=== PATIENT | female | born 1995 | race Caucasian/White ===

== ENCOUNTER 2017-01-09 21:05 | Emergency (ER) | payer OTHER ==
--- NOTE | 2017-01-09 23:53 | ED CLINICAL REPORT ---
Clinical Report - Physicians/Mid Levels [facility] [address] [place] [address] 01/09/2017 21:08 Patient: RENETTA PRINGLE Time Seen: 22:06 Jan 09 2017. Arrived- By private vehicle. Historian- patient. HISTORY OF PRESENT ILLNESS Chief Complaint: PELVIC PAIN and VAGINAL BLEEDING. 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 The symptoms are described as mild. The patient has had pelvic pain and lower back pain. No pain with urination or urinary frequency. (, status post a D&C on 12/01/16 now with pelvic pain and cramping as well as low back pain, and continuing spotting, vaginal bleeding sincelast month, with worsening of spotting over the last 2 days. Denies any lightheadedness, syncope. Denies any palpitations.). REVIEW OF SYSTEMS No nausea or vomiting. All systems otherwise negative, except as recorded above. PAST HISTORY Problems: Heart Disease. Pyelonephritis. Asthma. Additional Surgeries: Dilatation & Curettage. Foot. Medications: Albuterol Sulfate Inhalation (currently out of MDI). Allergies: Sulfa Antibiotics. SOCIAL HISTORY Smoker- current status unknown. No alcohol use or drug use. ADDITIONAL NOTES The nursing notes have been reviewed. PHYSICAL EXAM Vital Signs: 01/09/2017 21:13 BP: 137/81. HR: 119. RR: 15. O2 saturation: 100%. Temp: 98 F. Pain level now: 8/10. Appearance: Alert. HEENT: Normal external inspection. Neck: Neck supple. CVS: Heart sounds normal. Rate normal. Rhythm normal. Respiratory: No respiratory distress. Abdomen: Soft. No mass. No abdominal tenderness. Back: Normal external inspection. No CVA tenderness. : Speculum and bimanual exam performed. Moderate vaginal bleeding, consisting of dark blood with clots, via the cervical os. Tissue present in the vagina (clots). Cervical os closed. No cervical dilation. Mild right adnexal tenderness; uterine tenderness. Uterine tenderness. No tenderness with movement of the cervix. No adnexal tenderness. No adnexal mass/fullness. (large clots, mid pelvic tenderness, no cmt tendernss, chaparoned with RN). Skin: Skin warm. Neuro: Oriented X 3. LABS, X-RAYS, AND EKG Pelvic Sonogram: IMPRESSION: 1. Negative pelvic ultrasound. Electronically Final signed by:Santhosh Vázquez MD 01/10/2017 6:27:06 AM. Laboratory Tests: UA-Culture if indicated: (ELISA: 01/09/2017 22:10) ( [facility] 01/09/2017 22:46) Final results Test Result Flag Units (Reference) URINE COLOR YELLOW URINE APPEARANCE CLEAR URINE GLUCOSE NEGATIVE (NEGATIVE) URINE BILIRUBIN 1+ (NEGATIVE) URINE KETONE TRACE (NEGATIVE) URINE SPECIFIC GRAVITY >= 1.030 (1.010-1.030) URINE PH 6.0 (5.0-8.0) URINE PROTEIN 1+ (NEGATIVE) URINE UROBILINOGEN 0.2 EU/dL (0.2-1.0) URINE NITRITE NEGATIVE (NEGATIVE) URINE BLOOD 3+ (NEGATIVE) URINE LEUK ESTERASE NEGATIVE (NEGATIVE) URINE RBC 75-100 rbc/hpf (0-1) URINE WBC 3-5 wbc/hpf (0-1) URINE EPITHELIAL CELLS 1-3 EPI/hpf (0-5) URINE BACTERIA MODERATE (2+ TO 3+) (NONE SEEN) URINE COMMENT CULTURE INDICATED FEW TRICHOMONASURINE CULTURES ARE SET-UP BASED ON THE FOLLOWING CRITERIA:POSITIVE NITRITEPOSITIVE LEUKOCYTE ESTERASEGREATER THAN 10 WHITE BLOOD CELLSMODERATE (2+) OR GREATER BACTERIA Serum Qualitative: (ELISA: 01/09/2017 22:15) ( [facility] 01/09/2017 22:49) Final results Test Result Flag Units (Reference) , SERUM POSITIVE VERY WEAK POSITIVE CBC w Diff: (ELISA: 01/09/2017 22:15) ( [facility] 01/09/2017 22:33) Final results Test Result Flag Units (Reference) WHITE BLOOD COUNT 9.6 K/uL (4.5-11.5) RED BLOOD COUNT 4.79 M/uL (4.00-5.20) HEMOGLOBIN 13.4 gm/dL (12.0-16.0) HEMATOCRIT 40.4 % (36.0-46.0) MEAN CELL VOLUME 84 fL (80-100) MEAN CORPUSCULAR HGB 28 pg (26-34) MEAN CORPUSCULAR HGB CONC 33 g/dL (31-37) RED CELL DISTRIBUTION WIDTH 14.6 % (11.6-14.8) PLATELET COUNT 362 K/uL (150-400) NEUTROPHIL % 74.9 % (50-75) LYMPH % 18.7 L % (25-40) MONO % 5.2 % (3-14) EOSINOPHIL % 0.9 % (0-4) BASOPHIL % 0.3 % (0-2) CMP: (ELISA: 01/09/2017 22:15) ( MsgRcvd 01/09/2017 23:37) Final results Test Result Flag Units (Reference) GLUCOSE 86 mg/dL (70-110) BUN 13 mg/dL (7-18) CREATININE 0.7 mg/dL (0.6-1.3) Estimated GFR >60 mL/min Estimated GFR- >60 mL/min Note: Persistent reduction over 3 months in eGFR<60 mL/min/1.73 m2 defines CKD. Patients with eGFR values>=60 mL/min/1.73 m2 may also have CKD if evidence ofpersistent proteinuria. Additional information may be foundat www.kidney.org. SODIUM 140 mmol/L (136-145) POTASSIUM 3.8 mmol/L (3.5-5.1) CHLORIDE 103 mmol/L (98-107) CARBON DIOXIDE 28 mmol/L (21-32) CALCIUM 9.3 mg/dL (8.5-10.1) TOTAL PROTEIN 8.4 H g/dL (6.4-8.2) ALBUMIN 4.1 g/dL (3.3-5.0) BILIRUBIN, TOTAL 0.4 mg/dL (0.0-1.0) ALKALINE PHOSPHATASE 70 U/L (46-116) AST (SGOT) 11 L U/L (15-37) ALT (SGPT) 18 U/L (12-78) Serum Quantitative: (ELISA: 01/09/2017 22:15) ( MsgRcvd 01/09/2017 23:13) Final results Test Result Flag Units (Reference) BETA HCG, QUANTITATIVE 3 mIU/mL REFERENCE RANGE:Adult Males: <2 mIU/mLNon- Females: <6 mIU/mL Females:Approximate Approximate hCGGestational Age Range (mIU/mL) 0-1 week 0-501-2 weeks 40-3002-3 weeks 100-57965-6 weeks 500-02870-3 months 5,000-200,0002-3 months 10,000-100,0002nd trimester 3,000-50,0003rd trimester 1,000-50,000 . PROGRESS AND PROCEDURES Course of Care: Patient with vaginal bleeding over the last 1 month, status post D&C. Patient with abdominal cramping off and on. Has not seen by INVESTMENT FUND MANAGER. Vaginal clots present today. Patient with hCG that is 3, likely declining from previous. Patient will need to follow-up with INVESTMENT FUND MANAGER. Patient with no CVA tenderness. Nonseptic appearing. Stable for disposition outpatient. 01/09/2017 23:58 BP: 115/87. HR: 59. RR: 15. O2 saturation: 98%. [place] pain scale: 2/10. Patient is stable. Physical exam findings are improved. Symptoms better. Patient/family counseled. Disposition: Discharged. Condition: good. CLINICAL IMPRESSION Vaginal bleeding. Acute pelvic pain. Acute urinary tract infection with cystitis. INSTRUCTIONS Drink plenty of fluids. Warnings: Further evaluation is necessary. GENERAL WARNINGS: Return or contact your physician immediately if your condition worsens or changes unexpectedly, if not improving as expected, or if other problems arise. Prescription Medications: Hydrocodone/APAP 5mg / 325mg: take 1 orally every 6 hours as needed for pain. Dispense twelve (12). No refill. Macrobid 100 mg: Take 1 capsule orally every 12 hours for 7 days. No refills. Substitution is permissible. Follow-up: Follow up with a specialist. Understanding of the discharge instructions verbalized by patient. Follow-up with: Jc Dempsey MD, Obstetrics/Gynecology, , [facility], [address] [place] [address] (Electronically signed by Yue Champion P.A.-C 01/10/2017 14:56)
--- NOTE | 2017-01-09 23:53 | ED CLINICAL REPORT ---
Clinical Report - Physicians/Mid Levels [facility] [address] [place] [place] [address] 01/09/2017 21:08 Patient: RENETTA PRINGLE Time Seen: 22:06 Jan 09 2017. Arrived- By private vehicle. Historian- patient. HISTORY OF PRESENT ILLNESS Chief Complaint: PELVIC PAIN and VAGINAL BLEEDING. 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 The symptoms are described as mild. The patient has had pelvic pain and lower back pain. No pain with urination or urinary frequency. (, status post a D&C on 12/01/16 now with pelvic pain and cramping as well as low back pain, and continuing spotting, vaginal bleeding sincelast month, with worsening of spotting over the last 2 days. Denies any lightheadedness, syncope. Denies any palpitations.). REVIEW OF SYSTEMS No nausea or vomiting. All systems otherwise negative, except as recorded above. PAST HISTORY Problems: Heart Disease. Pyelonephritis. Asthma. Additional Surgeries: Dilatation & Curettage. Foot. Medications: Albuterol Sulfate Inhalation (currently out of MDI). Allergies: Sulfa Antibiotics. SOCIAL HISTORY Smoker- current status unknown. No alcohol use or drug use. ADDITIONAL NOTES The nursing notes have been reviewed. PHYSICAL EXAM Vital Signs: 01/09/2017 21:13 BP: 137/81. HR: 119. RR: 15. O2 saturation: 100%. Temp: 98 F. Pain level now: 8/10. Appearance: Alert. HEENT: Normal external inspection. Neck: Neck supple. CVS: Heart sounds normal. Rate normal. Rhythm normal. Respiratory: No respiratory distress. Abdomen: Soft. No mass. No abdominal tenderness. Back: Normal external inspection. No CVA tenderness. : Speculum and bimanual exam performed. Moderate vaginal bleeding, consisting of dark blood with clots, via the cervical os. Tissue present in the vagina (clots). Cervical os closed. No cervical dilation. Mild right adnexal tenderness; uterine tenderness. Uterine tenderness. No tenderness with movement of the cervix. No adnexal tenderness. No adnexal mass/fullness. (large clots, mid pelvic tenderness, no cmt tendernss, chaparoned with RN). Skin: Skin warm. Neuro: Oriented X 3. LABS, X-RAYS, AND EKG Pelvic Sonogram: IMPRESSION: 1. Negative pelvic ultrasound. Electronically Final signed by:Santhosh Vázquez MD 01/10/2017 6:27:06 AM. Laboratory Tests: UA-Culture if indicated: (ELISA: 01/09/2017 22:10) ( [facility] 01/09/2017 22:46) Final results Test Result Flag Units (Reference) URINE COLOR YELLOW URINE APPEARANCE CLEAR URINE GLUCOSE NEGATIVE (NEGATIVE) URINE BILIRUBIN 1+ (NEGATIVE) URINE KETONE TRACE (NEGATIVE) URINE SPECIFIC GRAVITY >= 1.030 (1.010-1.030) URINE PH 6.0 (5.0-8.0) URINE PROTEIN 1+ (NEGATIVE) URINE UROBILINOGEN 0.2 EU/dL (0.2-1.0) URINE NITRITE NEGATIVE (NEGATIVE) URINE BLOOD 3+ (NEGATIVE) URINE LEUK ESTERASE NEGATIVE (NEGATIVE) URINE RBC 75-100 rbc/hpf (0-1) URINE WBC 3-5 wbc/hpf (0-1) URINE EPITHELIAL CELLS 1-3 EPI/hpf (0-5) URINE BACTERIA MODERATE (2+ TO 3+) (NONE SEEN) URINE COMMENT CULTURE INDICATED FEW TRICHOMONASURINE CULTURES ARE SET-UP BASED ON THE FOLLOWING CRITERIA:POSITIVE NITRITEPOSITIVE LEUKOCYTE ESTERASEGREATER THAN 10 WHITE BLOOD CELLSMODERATE (2+) OR GREATER BACTERIA Serum Qualitative: (ELISA: 01/09/2017 22:15) ( [facility] 01/09/2017 22:49) Final results Test Result Flag Units (Reference) , SERUM POSITIVE VERY WEAK POSITIVE CBC w Diff: (ELISA: 01/09/2017 22:15) ( [facility] 01/09/2017 22:33) Final results Test Result Flag Units (Reference) WHITE BLOOD COUNT 9.6 K/uL (4.5-11.5) RED BLOOD COUNT 4.79 M/uL (4.00-5.20) HEMOGLOBIN 13.4 gm/dL (12.0-16.0) HEMATOCRIT 40.4 % (36.0-46.0) MEAN CELL VOLUME 84 fL (80-100) MEAN CORPUSCULAR HGB 28 pg (26-34) MEAN CORPUSCULAR HGB CONC 33 g/dL (31-37) RED CELL DISTRIBUTION WIDTH 14.6 % (11.6-14.8) PLATELET COUNT 362 K/uL (150-400) NEUTROPHIL % 74.9 % (50-75) LYMPH % 18.7 L % (25-40) MONO % 5.2 % (3-14) EOSINOPHIL % 0.9 % (0-4) BASOPHIL % 0.3 % (0-2) CMP: (ELISA: 01/09/2017 22:15) ( MsgRcvd 01/09/2017 23:37) Final results Test Result Flag Units (Reference) GLUCOSE 86 mg/dL (70-110) BUN 13 mg/dL (7-18) CREATININE 0.7 mg/dL (0.6-1.3) Estimated GFR >60 mL/min Estimated GFR- >60 mL/min Note: Persistent reduction over 3 months in eGFR<60 mL/min/1.73 m2 defines CKD. Patients with eGFR values>=60 mL/min/1.73 m2 may also have CKD if evidence ofpersistent proteinuria. Additional information may be foundat www.kidney.org. SODIUM 140 mmol/L (136-145) POTASSIUM 3.8 mmol/L (3.5-5.1) CHLORIDE 103 mmol/L (98-107) CARBON DIOXIDE 28 mmol/L (21-32) CALCIUM 9.3 mg/dL (8.5-10.1) TOTAL PROTEIN 8.4 H g/dL (6.4-8.2) ALBUMIN 4.1 g/dL (3.3-5.0) BILIRUBIN, TOTAL 0.4 mg/dL (0.0-1.0) ALKALINE PHOSPHATASE 70 U/L (46-116) AST (SGOT) 11 L U/L (15-37) ALT (SGPT) 18 U/L (12-78) Serum Quantitative: (ELISA: 01/09/2017 22:15) ( MsgRcvd 01/09/2017 23:13) Final results Test Result Flag Units (Reference) BETA HCG, QUANTITATIVE 3 mIU/mL REFERENCE RANGE:Adult Males: <2 mIU/mLNon- Females: <6 mIU/mL Females:Approximate Approximate hCGGestational Age Range (mIU/mL) 0-1 week 0-501-2 weeks 40-3002-3 weeks 100-77946-0 weeks 500-44647-5 months 5,000-200,0002-3 months 10,000-100,0002nd trimester 3,000-50,0003rd trimester 1,000-50,000 . PROGRESS AND PROCEDURES Course of Care: Patient with vaginal bleeding over the last 1 month, status post D&C. Patient with abdominal cramping off and on. Has not seen by RELIGION INSTRUCTOR. Vaginal clots present today. Patient with hCG that is 3, likely declining from previous. Patient will need to follow-up with RELIGION INSTRUCTOR. Patient with no CVA tenderness. Nonseptic appearing. Stable for disposition outpatient. 01/09/2017 23:58 BP: 115/87. HR: 59. RR: 15. O2 saturation: 98%. [place] pain scale: 2/10. Patient is stable. Physical exam findings are improved. Symptoms better. Patient/family counseled. Disposition: Discharged. Condition: good. CLINICAL IMPRESSION Vaginal bleeding. Acute pelvic pain. Acute urinary tract infection with cystitis. INSTRUCTIONS Drink plenty of fluids. Warnings: Further evaluation is necessary. GENERAL WARNINGS: Return or contact your physician immediately if your condition worsens or changes unexpectedly, if not improving as expected, or if other problems arise. Prescription Medications: Hydrocodone/APAP 5mg / 325mg: take 1 orally every 6 hours as needed for pain. Dispense twelve (12). No refill. Macrobid 100 mg: Take 1 capsule orally every 12 hours for 7 days. No refills. Substitution is permissible. Follow-up: Follow up with a specialist. Understanding of the discharge instructions verbalized by patient. Follow-up with: Jc Dempsey MD, Obstetrics/Gynecology, , [facility], [address] [place] [address] (Electronically signed by Yue Champion P.A.-C 01/10/2017 14:56)
--- NOTE | 2017-01-09 23:53 | ED ORDER SUMMARY ---
..... Patient: RENETTA PRINGLE OrderSheet [facility] VisitID: [id number] [place] [address] 21y, F Registration Date/Time: 01/09/2017 ORDER SHEET Weight: 52.1 kg (stated) Allergies: Sulfa Antibiotics GENERAL ORDERS: Wet Prep (Cervix) (v) Urgent (21:26 01/09/2017 EKoroleva P.A.-C) (Ack 21:34 [facility]) (22:22 [facility]) CBC w Diff Urgent (21:26 01/09/2017 EKoroleva P.A.-C) (Ack 21:34 [facility]) (22:22 [facility]) Serum Qualitative Urgent (21:26 01/09/2017 EKoroleva P.A.-C) (Ack 21:34 [facility]) (22:22 [facility]) UA-Culture if indicated Urgent (21:27 01/09/2017 EKoroleva P.A.-C) (Ack 21:34 [facility]) (22:22 [facility]) US Pelvic Complete w Transvag Urgent (21:54 01/09/2017 EKoroleva P.A.-C) (Ack 21:56 [facility]) (23:58 RCollier R.N.) Serum Quantitative Urgent (22:59 01/09/2017 EKoroleva P.A.-C) (Ack 23:10 [facility]) (23:11 [facility]) CMP Urgent (23:22 01/09/2017 EKoroleva P.A.-C) (23:23 [facility]) MEDICATION ORDERS: Hydrocodone-APAP PO 10/650 mg (NOW, HIGH ALERT MEDICATION) (23:23 01/09/2017 EKoroleva P.A.-C) (Ack 23:28 RCollier R.N.) (23:31 RCollier R.N.) Macrobid PO 100 mg (NOW) (23:52 01/09/2017 EKoroleva P.A.-C) (Ack 23:53 Micky Tay) (23:58 Micky Tay) IV FLUIDS: ORDER SHEET NOTES: [Electronically signed by Yvonne Pal R.N. (00:03 01/10/2017)] [Electronically signed by Yue Champion P.A.-C (14:56 01/10/2017)] [Electronically locked/signed by Yvonne Pal R.N. (00:03 01/10/2017)]
--- NOTE | 2017-01-09 23:53 | ED NURSING NOTES ---
Clinical Report - Nurses [facility] [address] [place] [address] 01/09/2017 21:08 Patient: RENETTA PRINGLE TRIAGE Triage time 21:13. Acuity: LEVEL 3. Chief Complaint: VAGINAL BLEED and LOW BACK PAIN. --21:21 Yvonne Pal R.N. 21:13 01/09/17. BP: 137/81. HR: 119. RR: 15. O2 saturation: 100% on room air. Temp: 98 F (oral). Pain level now: 03/24. --21:21 Yvonne Pal R.N. Weight: 52.1 kg stated. Height/Length: 63 inches Per Patient. BMI: 20.4. Growth Chart Percentile: Weight: 23.6%. Height/Length: 30.4%. --21:20 Yvonne Pal R.N. Medications Albuterol Sulfate Inhalation (currently out of MDI). --21:17 Yvonne Pal R.N. The following entry was struck by Yvonne Pal R.N., 21:17 (01/09/17) Reason - other. <<STRICKEN ENTRY-- None. --21:16 Yvonne Pal R.N. --END STRIKE>>. Allergies Sulfa Antibiotics. --21:16 Yvonne Pal R.N. History Primary physician (None). ( had a D&C on 12-01 (pt was 17 weeks at that time) and has had vaginal bleeding since but began heavy bleeding today.). Onset. (about 1 months ago getting worse today.). 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 (200mg last dose about 2 hours MIXER SLAGMAN). PAST MEDICAL HX: Immunizations: up-to-date. SOCIAL HX: Heavy tobacco smoker (cigarette)- less than 1 pack per day. No alcohol use or drug use. NUTRITIONAL RISK ASSESSMENT: The nutritional risk assessment revealed no deficiencies. FUNCTIONAL ASSESSMENT: Functional assessment: no impairments noted. --21:21 Yvonne Pal R.N. PROBLEMS: Pyelonephritis. Asthma. --21:17 Yvonne Pal R.N. ADDITIONAL SURGERIES: Dilatation & Curettage. Foot. --21:17 Yvonne Pal R.N. Interventions ID band on patient. To treatment room. --21:21 Yvonne Pal R.N. PHYSICAL ASSESSMENT Ambulatory to room. Patient gowned. GENERAL / NEURO / PSYCH: Alert. Oriented X 4. Appears in no acute distress. RESPIRATORY: Respirations not labored. CVS: Capillary refill less than 2 seconds. GI / : Vaginal bleeding present (has gone through 3 pads today). SKIN: Skin is warm and dry. --21:22 Yvonne Pal R.N. NURSING PROGRESS NOTES Head of bed elevated. Two patient identifiers checked. Call light placed in reach. Side rails up x 1. Bed placed in lowest position. Brakes of bed on. --21:22 Yvonne Pal R.N. Patient ready for evaluation- chart flagged. --21:22 Yvonne Pal R.N. ( Blood drawn and urine collected by Roya Villanueva chrome tanner.). --22:25 Yvonne Pal R.N. 23:31 01/09/2017 Hydrocodone-APAP (Hydrocodone-Acetaminophen) PO 5/325 mg Tablets 2 tab given. Allergies verified, confirmed 5 rights and sedative warning given to the patient. --23:31 Yvonne Pal R.N. ( Ultrasound exam in process. Patient ambulates to restroom to empty bladder for remainder of exam.). --23:32 Yvonne Pal R.N. 23:53 01/09/2017 Macrobid PO Capsules 100 mg given. Allergies verified and confirmed 5 rights. --23:58 Yvonne Pal R.N. DISPOSITION / DISCHARGE 23:58 01/09/17. BP: 115/87. HR: 59. RR: 15. O2 saturation: 98% on room air. Wood-[place] pain scale: 2/10. --23:58 Yvonne Pal R.N. Condition at departure: improved and stable. No learning barriers present. Discharge instructions provided and reviewed with the patient. Reviewed medication(s) side effects, precautions, dosing and course information. Prescription(s) given to the patient. Patient verbalized understanding. Written instructions provided in Kenyan. The patient was discharged home and accompanied by tool carrier. She left the Emergency Department ambulatory and via private vehicle. Fine Arts Chair driving. --00:02 Yvonne Pal R.N. Locked/Released at 01/10/2017 0:03 by Yvonne Pal R.N.
--- NOTE | 2017-01-09 23:53 | ED ORDER SUMMARY ---
..... Patient: RENETTA PRINGLE OrderSheet [facility] VisitID: [id number] [place] [address] 21y, F Registration Date/Time: 01/09/2017 ORDER SHEET Weight: 52.1 kg (stated) Allergies: Sulfa Antibiotics GENERAL ORDERS: Wet Prep (Cervix) (v) Urgent (21:26 01/09/2017 EKoroleva P.A.-C) (Ack 21:34 [facility] Account[facility]) (22:22 [facility] Accountant) CBC w Diff Urgent (21:26 01/09/2017 EKoroleva P.A.-C) (Ack 21:34 [facility] Accountant) (22:22 [facility] Accountant) Serum Qualitative Urgent (21:26 01/09/2017 EKoroleva P.A.-C) (Ack 21:34 [facility] Accountant) (22:22 [facility] Accountant) UA-Culture if indicated Urgent (21:27 01/09/2017 EKoroleva P.A.-C) (Ack 21:34 [facility] Accountant) (22:22 [facility] Accountant) US Pelvic Complete w Transvag Urgent (21:54 01/09/2017 EKoroleva P.A.-C) (Ack 21:56 [facility] Accountant) (23:58 RCollier R.N.) Serum Quantitative Urgent (22:59 01/09/2017 EKoroleva P.A.-C) (Ack 23:10 [facility] Accountant) (23:11 [facility] Accountant) CMP Urgent (23:22 01/09/2017 EKoroleva P.A.-C) (23:23 [facility] Administrative Accountant) MEDICATION ORDERS: Hydrocodone-APAP PO 10/650 mg (NOW, HIGH ALERT MEDICATION) (23:23 01/09/2017 EKoroleva P.A.-C) (Ack 23:28 RCollier R.N.) (23:31 RCollier R.N.) Macrobid PO 100 mg (NOW) (23:52 01/09/2017 EKoroleva P.A.-C) (Ack 23:53 Micky Tay) (23:58 Micky Tay) IV FLUIDS: ORDER SHEET NOTES: [Electronically signed by Yvonne Pal R.N. (00:03 01/10/2017)] [Electronically signed by Yue Champion P.A.-C (14:56 01/10/2017)] [Electronically locked/signed by Yvonne Pal R.N. (00:03 01/10/2017)]
--- NOTE | 2017-01-09 23:53 | ED NURSING NOTES ---
Clinical Report - Nurses [facility] [address] [place] [address] 01/09/2017 21:08 Patient: RENETTA PRINGLE TRIAGE Triage time 21:13. Acuity: LEVEL 3. Chief Complaint: VAGINAL BLEED and LOW BACK PAIN. --21:21 Yvonne Pal R.N. 21:13 01/09/17. BP: 137/81. HR: 119. RR: 15. O2 saturation: 100% on room air. Temp: 98 F (oral). Pain level now: 03/24. --21:21 Yvonne Pal R.N. Weight: 52.1 kg stated. Height/Length: 63 inches Per Patient. BMI: 20.4. Growth Chart Percentile: Weight: 23.6%. Height/Length: 30.4%. --21:20 Yvonne Pal R.N. Medications Albuterol Sulfate Inhalation (currently out of MDI). --21:17 Yvonne Pal R.N. The following entry was struck by Yvonne Pal R.N., 21:17 (01/09/17) Reason - other. <<STRICKEN ENTRY-- None. --21:16 Yvonne Pal R.N. --END STRIKE>>. Allergies Sulfa Antibiotics. --21:16 Yvonne Pal R.N. History Primary physician (None). ( had a D&C on 12-01 (pt was 17 weeks at that time) and has had vaginal bleeding since but began heavy bleeding today.). Onset. (about 1 months ago getting worse today.). 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 (200mg last dose about 2 hours GARMENT MENDER). PAST MEDICAL HX: Immunizations: up-to-date. SOCIAL HX: Heavy tobacco smoker (cigarette)- less than 1 pack per day. No alcohol use or drug use. NUTRITIONAL RISK ASSESSMENT: The nutritional risk assessment revealed no deficiencies. FUNCTIONAL ASSESSMENT: Functional assessment: no impairments noted. --21:21 Yvonne Pal R.N. PROBLEMS: Pyelonephritis. Asthma. --21:17 Yvonne Pal R.N. ADDITIONAL SURGERIES: Dilatation & Curettage. Foot. --21:17 Yvonne Pal R.N. Interventions ID band on patient. To treatment room. --21:21 Yvonne Pal R.N. PHYSICAL ASSESSMENT Ambulatory to room. Patient gowned. GENERAL / NEURO / PSYCH: Alert. Oriented X 4. Appears in no acute distress. RESPIRATORY: Respirations not labored. CVS: Capillary refill less than 2 seconds. GI / : Vaginal bleeding present (has gone through 3 pads today). SKIN: Skin is warm and dry. --21:22 Yvonne Pal R.N. NURSING PROGRESS NOTES Head of bed elevated. Two patient identifiers checked. Call light placed in reach. Side rails up x 1. Bed placed in lowest position. Brakes of bed on. --21:22 Yvonne Pal R.N. Patient ready for evaluation- chart flagged. --21:22 Yvonne Pal R.N. ( Blood drawn and [facility] --22:25 Yvonne Pal R.N. 23:31 01/09/2017 Hydrocodone-APAP (Hydrocodone-Acetaminophen) PO 5/325 mg Tablets 2 tab given. Allergies verified, confirmed 5 rights and sedative warning given to the patient. --23:31 Yvonne Pal R.N. ( Ultrasound exam in process. Patient ambulates to restroom to empty bladder for remainder of exam.). --23:32 Yvonne Pal R.N. 23:53 01/09/2017 Macrobid PO Capsules 100 mg given. Allergies verified and confirmed 5 rights. --23:58 Yvonne Pal R.N. DISPOSITION / DISCHARGE 23:58 01/09/17. BP: 115/87. HR: 59. RR: 15. O2 saturation: 98% on room air. [place] pain scale: 2/10. --23:58 Yvonne Pal R.N. Condition at departure: improved and stable. No learning barriers present. Discharge instructions provided and reviewed with the patient. Reviewed medication(s) side effects, precautions, dosing and course information. Prescription(s) given to the patient. Patient verbalized understanding. Written instructions provided in [place]. The patient was discharged home and accompanied by scientific director. She left the Emergency Department ambulatory and via private vehicle. News Library Director driving. --00:02 Yvonne Pal R.N. Locked/Released at 01/10/2017 0:03 by Yvonne Pal R.N.
--- NOTE | 2017-01-10 06:31 | DIAGNOSTIC IMAGING REPORT ---
PROCEDURE: US COMPLETE PELVIC W/TRANSVAG INDICATION: ABNORMAL BLEEDING TECHNIQUE: Transabdominal and endovaginal jones scale and color Doppler sonographic images of the female pelvis were obtained. COMPARISON: None. FINDINGS: TRANSABDOMINAL SCANS: Uterus is of normal size (6.0 x 3.0 x 5.3 cm), although anteflexed (normal variant). Kidneys are normal (right 11 point centimeters, left 11.8 cm). TRANSVAGINAL SCANS: Endometrial thickness is normal (8 mm). Ovaries are normal (right 3.8 cm, left 3.5 cm) with normal vascularity. No evidence of free fluid. IMPRESSION: 1. Negative pelvic ultrasound.
--- NOTE | 2017-01-10 14:57 | ED MAR SUMMARY ---
..... Medication Administration Record [facility] [address] [place] [address] Patient: RENETTA PRINGLE Visit ID: [id number] 21y, F Weight: 52.1 kg Height/Length: 63 in BMI: 20.4 ALLERGIES: Sulfa Antibiotics Given 23:31 01/09/2017 Yvonne Pal RSoniaNSonia Medication Administered: HYDROCODONE-APAP [PO] (HYDROCODONE-ACETAMINOPHEN), Dose: 2 tab 5/325 mg Tablets PO. Medication Ordered: Hydrocodone-APAP PO 10/650 mg (NOW, HIGH ALERT MEDICATION). Given 23:53 01/09/2017 Yvonne Pal, RSoniaN. Medication Administered: MACROBID [PO], Dose: 100 mg Capsules PO. Medication Ordered: Macrobid PO 100 mg (NOW).
--- NOTE | 2017-01-10 14:57 | ED MAR SUMMARY ---
..... Medication Administration Record [facility] [address] [place] [address] Patient: RENETTA PRINGLE Visit ID: [id number] 21y, F Weight: 52.1 kg Height/Length: 63 in BMI: 20.4 ALLERGIES: Sulfa Antibiotics Given 23:31 01/09/2017 Yvonne Pal RSoniaNSonia Medication Administered: HYDROCODONE-APAP [PO] (HYDROCODONE-ACETAMINOPHEN), Dose: 2 tab 5/325 mg Tablets PO. Medication Ordered: Hydrocodone-APAP PO 10/650 mg (NOW, HIGH ALERT MEDICATION). Given 23:53 01/09/2017 Yvonne Pal, RSoniaN. Medication Administered: MACROBID [PO], Dose: 100 mg Capsules PO. Medication Ordered: Macrobid PO 100 mg (NOW).
--- NOTE | 2017-01-10 14:57 | ED DISCHARGE INSTRUCTIONS ---
Patient: RENETTA PRINGLE General Instructions [facility] VisitID: [id number] [place] [address] 21y, F Registration Date/Time: 01/09/2017 Vaginal bleeding. Acute pelvic pain. Acute urinary tract infection with cystitis. INSTRUCTIONS Drink plenty of fluids. Warnings: Further evaluation is necessary. GENERAL WARNINGS: Return or contact your physician immediately if your condition worsens or changes unexpectedly, if not improving as expected, or if other problems arise. Prescription Medications: Hydrocodone/APAP 5mg / 325mg: take 1 orally every 6 hours as needed for pain. Dispense twelve (12). No refill. Macrobid 100 mg: Take 1 capsule orally every 12 hours for 7 days. No refills. Substitution is permissible. Follow-up: Follow up with a specialist. Understanding of the discharge instructions verbalized by patient. Follow-up with: Jc Dempsey MD, Obstetrics/Gynecology, , [facility], [address] [place] [address] ADDITIONAL INFORMATION Painful Menstrual Periods The uterus is a muscle and contracts normally during the menstrual cycle. The contraction pushes out the build-up of tissue that occurs each month inside the uterus. If the contraction is very strong, it can cause pain because the muscle is not getting enough oxygen for the amount of work it is doing. Pain with menstruation is called dysmenorrhea. The pain may feel like a dull ache or throbbing in the lower abdomen. It may spread to your lower back or inner thighs. In severe cases there may also be nausea, vomiting, loose stools, sweating or dizziness. There are two types of dysmenorrhea: Primary Dysmenorrhea (common menstrual cramps) usually appears within one or two years after you start your periods. It usually gets better or goes away as you get older or when you have a baby. The menstrual cramps usually start just before, or on the day of your period, and last 1-3 days. Treatment is with comfort measures and anti-inflammatory drugs as described below (see Home Care). If your pain is not controlled with these measures, your doctor may prescribe control pills. This will reduce the pain of each period. Secondary Dysmenorrhea starts later in life. The pain begins earlier in the menstrual cycle and lasts longer than common menstrual cramps. It is caused by a specific problem with the pelvic organs, such as: PID (pelvic inflammatory disease) -- an infection in the fallopian tubes Fibroids benign tumors within the wall of the uterus (not cancer) Endometriosis the tissue that lines the uterus spreads outside the uterus and grows there. This tissue swells and bleeds each month, just like the tissue in your uterus, and causes pain. IUD use -- especially in the first few months after placement Once the cause of secondary dysmenorrhea is found, it can be treated. Home Care: Most women with common menstrual cramping (primary dysmenorrhea) can remain active throughout their period. Many women find that regular exercise each werek reduces menstrual pain. If cramping is severe, rest in bed with a heating pad on the lower abdomen or lower back. A hot bath or massage to the lower back and abdomen may also give relief. Smoking can make symptoms worse. If you smoke, ask your doctor for help with a stop-smoking plan. Avoid caffeine and alcohol around the time of your period since these can make symptoms worse. Anti-inflammatory medicine such as aspirin, ibuprofen (Advil, Motrin) or naproxen (Aleve, Naprosyn) can be very helpful, especially if taken at the very first signs of bleeding or cramping . Acetaminophen (Tylenol) is not as effective for this problem. [NOTE: If you have chronic liver or kidney disease or ever had a stomach ulcer or GI bleeding, talk with your doctor before using these medicines.] If your pain is not controlled by the above measures, a prescription pain medicine may be required for a short time. Discuss this with your doctor. Follow Up with your doctor as advised. If you have just started menstruating in the past 1-2 years, and your pain is mild to moderate, your symptoms are most likely not a cause for concern. However, if menstrual cramps are severe enough to interfere with your daily activities, last longer than a few days, or if you are older and just started having menstrual pain, it is important to see your doctor for further evaluation. Get Prompt Medical Attention if any of the following occur: Fever over 100.4F (38.0C) with pelvic pain Uncontrolled menstrual pain or pain that lasts longer than usual or occurs between periods Unusual vaginal discharge between periods Heavy vaginal bleeding (soaking more than one pad an hour for three hours) Passage of pink or jones tissue from the vagina If you use tampons, watch for the following signs of Toxic Shock Syndrome and return at once: Fever over 102.0F (38.9C), with or without pelvic pain Vomiting, diarrhea Dizziness, weakness or fainting Rash that looks like a bad sunburn Irregular Vaginal Bleeding This is a condition in which bleeding occurs at unexpected times of the month. The bleeding may be heavier or manager banking than usual. Heavy bleeding may lead to anemia. If severe enough, anemia may cause you to look pale and feel weak or fatigued. You might have shortness of breath even with little exertion. The female hormones produced in your body every month may be out of balance. This imbalance leads to bleeding. Causes could include an ovarian cyst, emotional stress, pelvic infection. Failure to ovulate during your last cycle may also cause this problem. Home Care: If bleeding is heavy, rest and avoid heavy exertion. You may use acetaminophen (Tylenol) or ibuprofen (Motrin, Advil) to control pain, unless another pain medicine was prescribed. [NOTE: If you have chronic liver or kidney disease or ever had a stomach ulcer or GI bleeding, talk with your doctor before using these medicines.] Iron supplements may be prescribed for anemia. It takes about 4-6 weeks for the iron to correct the anemia. Take the medicine as directed. See your doctor for a repeat blood test after you finish the iron treatment. If hormones were prescribed to control your bleeding, take them exactly as directed. If you were prescribed a medicine called Provera (medroxyprogesterone), the bleeding should stop while you are taking it. Another period will start a few days after you finish the medicine. Follow Up with your doctor, or as advised, within the next 1-2 days if heavy bleeding continues. Otherwise, follow up within the next 1-2 weeks. Get Prompt Medical Attention if any of the following occur: Bleeding becomes heavy (soaking one pad an hour for three hours) Fever of 100.4F (38C) or higher, or as directed by your healthcare provider Increase in abdominal pain Weakness, dizziness or fainting Heavy Menstrual Bleeding In this condition (also called "menorrhagia"), the menstrual periods are heavier or longer than usual. You may pass large, dark clots. If you have frequent, heavy periods, you may become anemic (low blood count). Severe anemia may cause you to look pale and feel weak or fatigued. You might become short of breath with minimal exertion. Heavy or prolonged bleeding may be due to female hormones being out of balance. Other causes include pelvic infection, benign fibroid tumors, use of an IUD or low thyroid function. It may occur in girls soon after they start to have their periods. Older women close to the age of menopause may also have this type of bleeding. If heavy bleeding does not stop, further evaluation will be needed to find out the exact cause. Home Care: If you tire easily, get plenty of rest. Avoid heavy exertion. Do not take aspirin-containing products and anti-inflammatory medicines like ibuprofen (Advil, Motrin), which thin the blood and may cause more bleeding. You may take acetaminophen (Tylenol) for pain unless another pain medicine was prescribed. If iron was prescribed for anemia, it will take about 4-6 weeks to rebuild your blood and correct the anemia. Take the iron as directed. If hormones were prescribed to control your bleeding, take them just as instructed. If you stop too soon or miss doses, the bleeding may begin again. If you were prescribed a medicine called Provera (medroxyprogesterone), the bleeding should stop while you are taking it. Another period will start a few days after you finish the medicine. Follow Up: You should see your doctor within the next 1-2 days if your bleeding does not begin to improve. Otherwise, schedule an appointment within the next 1-2 weeks. Get Prompt Medical Attention if any of the following occur: Heavier bleeding (soaking one pad an hour for three hours) Heavy bleeding for more than one week Fever of 100.4F (38C) or higher, or as directed by your healthcare provider Increase in abdominal pain Feeling weak or dizzy, fainting Pelvic Pain, Uncertain Cause Based on your visit today, the exact cause of your pelvic pain is not certain. But your condition does not appear to be serious at this time. However, the signs of a serious problem may take more time to appear. Therefore, it is important for you to watch for any new symptoms or worsening of your condition. Home Care: Rest until you are feeling better. Avoid sexual intercourse until your pain goes away. You may use acetaminophen (Tylenol) or ibuprofen (Motrin, Advil) to control pain, unless another medicine was prescribed. [NOTE: If you have chronic liver or kidney disease or ever had a stomach ulcer or GI bleeding, talk with your doctor before using these medicines.] Follow Up with your doctor as advised. If a culture test was taken, call in two days for the results. If the culture is positive, you will be given more advice at that time. Otherwise, follow-up with your doctor or this facility as instructed. Get Prompt Medical Attention if any of the following occur: Fever of 100.4F (38C) or higher, or as directed by your healthcare provider Vaginal discharge Worsening pain Weakness, dizziness or fainting Unexpected vaginal bleeding or passage of jones or white tissue from the vagina Pain that moves to the right lower abdomen Bladder Infection,Female (Adult) A bladder infection ("cystitis" or "UTI") usually causes a constant urge to urinate and a burning when passing urine. Urine may be cloudy, smelly or dark. There may be pain in the lower abdomen. A bladder infection occurs when bacteria from the vaginal area enter the bladder opening (urethra). This can occur from sexual intercourse, wearing tight clothing, dehydration and other factors. Home Care: Drink lots of fluids (at least 6-8 glasses a day, unless you must restrict fluids for other medical reasons). This will force the medicine into your urinary system and flush the bacteria out of your body. Avoid sexual intercourse until your symptoms are gone. Avoid caffeine, alcohol and spicy foods. These can irritate the bladder. A bladder infection is treated with antibiotics. You may also be given Pyridium (generic = phenazopyridine) to reduce the burning sensation. This medicine will cause your urine to become a bright orange color. The orange urine may stain clothing. You may wear a pad or panty-liner to protect clothing. Preventing Future Infections: Always wipe from front to back after a bowel movement. Keep the genital area clean and dry. Drink plenty of fluids each day to avoid dehydration. Both sexual partners should wash before intercourse. Urinate right after intercourse to flush out the bladder. Wear cotton underwear and cotton-lined panty hose; avoid tight-fitting pants. If you are on control pills and are having frequent bladder infections, discuss with your doctor. Follow Up: Return to this facility or see your doctor if ALL symptoms are not gone after three days of treatment. Get Prompt Medical Attention if any of the following occur: Fever of 100.4F (38C) or higher, or as directed by your healthcare provider No improvement by the third day of treatment Increasing back or abdominal pain Repeated vomiting; unable to keep medicine down Weakness, dizziness or fainting Vaginal discharge Pain, redness or swelling in the labia (outer vaginal area) Hydrocodone Bitartrate, Acetaminophen Oral tablet What is this medicine? ACETAMINOPHEN; HYDROCODONE (a set a ZAN edmundo fen; nilay droe KOE done) is a pain reliever. It is used to treat mild to moderate pain. How should I use this medicine? Take this medicine by mouth. Swallow it with a full glass of water. Follow the directions on the prescription label. If the medicine upsets your stomach, take the medicine with food or milk. Do not take more than you are told to take. Talk to your plastic joint maker regarding the use of this medicine in children. This medicine is not approved for use in children. What side effects may I notice from receiving this medicine? Side effects that you should report to your doctor or health healthcare network pricing consultant as soon as possible: allergic reactions like skin rash, itching or hives, swelling of the face, lips, or tongue breathing problems confusion feeling faint or lightheaded, falls stomach pain yellowing of the eyes or skin Side effects that usually do not require medical attention (report to your doctor or health healthcare network pricing consultant if they continue or are bothersome): nausea, vomiting stomach upset What may interact with this medicine? alcohol antihistamines isoniazid medicines for depression, anxiety, or psychotic disturbances medicines for sleep muscle relaxants naltrexone narcotic medicines (opiates) for pain phenobarbital ritonavir tramadol What if I miss a dose? If you miss a dose, take it as soon as you can. If it is almost time for your next dose, take only that dose. Do not take double or extra doses. Where should I keep my medicine? Keep out of the reach of children. This medicine can be abused. Keep your medicine in a safe place to protect it from theft. Do not share this medicine with anyone. Selling or giving away this medicine is dangerous and against the law. Store at room temperature between 15 and 30 degrees C (59 and 86 degrees F). Protect from light. Keep container tightly closed. Throw away any unused medicine after the expiration date. Discard unused medicine and used packaging carefully. Pets and children can be harmed if they find used or lost packages. What should I tell my health care provider before I take this medicine? They need to know if you have any of these conditions: brain tumor Crohn's disease, inflammatory bowel disease, or ulcerative colitis drink more than 3 alcohol-containing drinks per day drug abuse or addiction head injury heart or circulation problems kidney disease or problems going to the bathroom liver disease lung disease, asthma, or breathing problems an unusual or allergic reaction to acetaminophen, hydrocodone, other opioid analgesics, other medicines, foods, dyes, or preservatives or trying to get breast-feeding What should I watch for while using this medicine? Tell your doctor or health healthcare network pricing consultant if your pain does not go away, if it gets worse, or if you have new or a different type of pain. You may develop tolerance to the medicine. Tolerance means that you will need a higher dose of the medicine for pain relief. Tolerance is normal and is expected if you take the medicine for a long time. Do not suddenly stop taking your medicine because you may develop a severe reaction. Your body becomes used to the medicine. This does NOT mean you are addicted. Addiction is a behavior related to getting and using a drug for a non-medical reason. If you have pain, you have a medical reason to take pain medicine. Your doctor will tell you how much medicine to take. If your doctor wants you to stop the medicine, the dose will be slowly lowered over time to avoid any side effects. You may get drowsy or dizzy when you first start taking the medicine or change doses. Do not drive, use machinery, or do anything that may be dangerous until you know how the medicine affects you. Stand or sit up slowly. There are different types of narcotic medicines (opiates) for pain. If you take more than one type at the same time, you may have more side effects. Give your health care provider a list of all medicines you use. Your doctor will tell you how much medicine to take. Do not take more medicine than directed. Call emergency for help if you have problems breathing. The medicine will cause constipation. Try to have a bowel movement at least every 2 to 3 days. If you do not have a bowel movement for 3 days, call your doctor or health healthcare network pricing consultant. Too much acetaminophen can be very dangerous. Do not take Tylenol (acetaminophen) or medicines that contain acetaminophen with this medicine. Many non-prescription medicines contain acetaminophen. Always read the labels carefully. You have been given the following additional information: Dysmenorrhea Dysfunctional Uterine Bleeding Menorrhagia Pelvic Pain, Unknown Cause Bladder Infection, Female (Adult) Hydrocodone Bitartrate, Acetaminophen Oral tablet (Electronically signed by Yue Champion P.A.-C 01/10/2017 14:56)
--- NOTE | 2017-01-10 14:57 | ED MED RECONCILIATION SUMMARY ---
Patient: RENETTA PRINGLE Medication Reconciliation Report [facility] VisitID: [id number] [place] [address] 21y, F Registration Date/Time: 01/09/2017 Weight: 52.1 kg Height/Length: 63 in. BMI: 20.4 ALLERGIES: Sulfa Antibiotics The patient's Home Medications are listed below: THE FOLLOWING MEDICATIONS NEED TO BE RECONCILED: Albuterol Sulfate Inhalation, currently out of MDI The source(s) of the original Home Medication information: Not obtained. The following Medications were given to the patient in the Emergency Department: Hydrocodone-APAP [PO] PO 2 tab, administered: 01/09/2017 11:31:00 PM Macrobid [PO] PO 100 mg, administered: 01/09/2017 11:53:00 PM The following Medications were prescribed to the patient: Hydrocodone/APAP 5mg / 325mg: take 1 orally every 6 hours as needed for pain. Dispense twelve (12). No refill. -- Yue Champion P.ASonia-Khurram Macrobid 100 mg: Take 1 capsule orally every 12 hours for 7 days. No refills. Substitution is permissible. -- Yue Champion, P.A.-C
--- NOTE | 2017-01-10 14:57 | ED MED RECONCILIATION SUMMARY ---
Patient: RENETTA PRINGLE Medication Reconciliation Report [facility] VisitID: [id number] [place] [address] 21y, F Registration Date/Time: 01/09/2017 Weight: 52.1 kg Height/Length: 63 in. BMI: 20.4 ALLERGIES: Sulfa Antibiotics The patient's Home Medications are listed below: THE FOLLOWING MEDICATIONS NEED TO BE RECONCILED: Albuterol Sulfate Inhalation, currently out of MDI The source(s) of the original Home Medication information: Not obtained. The following Medications were given to the patient in the Emergency Department: Hydrocodone-APAP [PO] PO 2 tab, administered: 01/09/2017 11:31:00 PM Macrobid [PO] PO 100 mg, administered: 01/09/2017 11:53:00 PM The following Medications were prescribed to the patient: Hydrocodone/APAP 5mg / 325mg: take 1 orally every 6 hours as needed for pain. Dispense twelve (12). No refill. -- Yue Champion P.ASonia-Khurram Macrobid 100 mg: Take 1 capsule orally every 12 hours for 7 days. No refills. Substitution is permissible. -- Yue Champion, P.A.-C
== END 2017-01-10 00:02 | disposition home or self-care (01) ==
LOC: ED SRH 21:05
DX: N93.9 Abnormal uterine and vaginal bleeding, unspecified (principal); N30.90 Cystitis, unspecified without hematuria; R10.2 Pelvic and perineal pain; Z88.2 Allergy status to sulfonamides; Z98.890 Other specified postprocedural states; Z87.59 Personal history of other complications of pregnancy, childbirth and the puerperium
CPT/HCPCS: 90004; 90100; 90197; 90469; 95059; 98428